=== PATIENT | female | born 1995 | race Caucasian/White ===

== ENCOUNTER 2018-08-05 09:01 | Emergency (ER) | payer OTHER ==
[~2018-08-05] VITALS: Ht 124.5 cm; Wt 70.3 kg
[~2018-08-05 09:01] MED LIST: LABETALOL HCL200 MG
== END 2018-08-05 11:24 | disposition home or self-care (01) ==
LOC: ER 09:01
DX: R00.2 Palpitations (principal); F06.4 Anxiety disorder due to known physiological condition